=== PATIENT | female | born 1990 | race Caucasian/White ===

== ENCOUNTER 2017-07-29 20:15 | Emergency (ER) | payer OTHER ==
--- NOTE | 2017-07-29 20:22 | PDOC ---
History of Present Illness - General History Source: Patient Exam Limitations: No Limitations - History of Present Illness Initial Comments: 07/29/17 20:51 The patient is a 26 year old female with past medical history of Left clavicle fracture (>10 years ago, 3x) presents to the emergency department with right knee pain. The patient states she was running on an uneven dirt road yesterday when she stumbled and felt an unusual painful sensation to the right knee. She denies falling, doesnt recall hearing a pop or twisting it, she rested for a little and continued running with persistent pain. The patient reports since then the pains been gradually getting worse, no relief w/ stretching or w/ aleve (3 tabs total). The patient reports loss of sleep due to the pain. Denies knee locking or crackles on movement of the knee. Denies any past injury or problem w/ either knee. Denies any joint stiffness. Denies back pain or neck pain. Denies numbness, tingling or loss of sensation. Denies fever, chills, nausea, vomiting. Allergies: NKDA Social history: patient reports history of smoking and occasional alcohol use. Denies the use of recreational drugs. PCP: Dr. Lobito Love. <Kerline Diaz - Last Filed: 07/29/17 21:15> <Sisi Duckworth - Last Filed: 07/30/17 01:05> - General Chief Complaint: Pain, Acute Stated Complaint: RT KNEE PAIN Time Seen by Provider: 07/29/17 20:20 Past History <Kerline Diaz - Last Filed: 07/29/17 21:15> - Immunization History Immunization Up to Date: Yes - Suicide/Smoking/Psychosocial Hx Smoking History: Never smoked Have you smoked in the past 12 months: Yes Number of Cigarettes Smoked Daily: 2 'Breaking Loose' booklet given: 06/02/15 Hx Alcohol Use: Yes (OCCAS) Drug/Substance Use Hx: No Substance Use Type: None <Sisi Duckworth - Last Filed: 07/30/17 01:05> - Past Medical History Allergies/Adverse Reactions: Allergies Allergy/AdvReac Type Severity Reaction Status Date / Time No Known Allergies Allergy Verified 07/29/17 20:18 Home Medications: Ambulatory Orders Diclofenac Sodium [Voltaren -] 75 mg PO BID PRN #14 tablet. 07/29/17 Naproxen Sodium [Aleve] 220 mg PO ASDIR 07/29/17 Review of Systems - Review of Systems Able to Perform ROS?: Yes Comments:: 07/29/17 20:51 GENERAL/CONSTITUTIONAL: No fever or chills. No weakness. HEAD, EYES, EARS, NOSE AND THROAT: No change in vision. No ear pain or discharge. No sore throat. CARDIOVASCULAR: No chest pain or shortness of breath. RESPIRATORY: No cough, wheezing, or hemoptysis. GASTROINTESTINAL: No nausea, vomiting, diarrhea or constipation. GENITOURINARY: No dysuria, frequency, or change in urination. MUSCULOSKELETAL: (+) right knee pain.No muscle swelling or pain. No neck or back pain. SKIN: No rash NEUROLOGIC: No headache, vertigo, loss of consciousness, or change in strength/ sensation. ENDOCRINE: No increased thirst. No abnormal weight change. HEMATOLOGIC/LYMPHATIC: No anemia, easy bleeding, or history of blood clots. ALLERGIC/IMMUNOLOGIC: No hives or skin allergy. <Kerline Diaz - Last Filed: 07/29/17 21:15> *Physical Exam - Vital Signs Last Vital Signs Temp Pulse Resp BP Pulse Ox 97.3 F L 57 L 18 119/67 98 07/29/17 20:15 07/29/17 20:15 07/29/17 20:15 07/29/17 20:15 07/29/17 20:15 - Physical Exam Comments: 07/29/17 21:11 GENERAL: Awake, alert, and fully oriented, in no acute distress HEAD: No signs of trauma EYES: PERRLA, EOMI, sclera anicteric, conjunctiva clear ENT: Auricles normal inspection, nares patent. Moist mucosa NECK: Normal ROM, supple, no JVD, or masses LUNGS: Breath sounds equal, clear to auscultation bilaterally. No wheezes, and no crackles HEART: Regular rate and rhythm, normal S1 and S2, no murmurs, rubs or gallops ABDOMEN: Soft, nontender, normoactive bowel sounds. No guarding, no rebound. No masses EXTREMITIES: (+) Right knee: Generalized edema w/o ecchymosis or deformities. Mild pain w/ varus and valgus stressing. No point tenderness. No ligament instability. Mild posterior tenderness w/o masses palpated. No patellar step offs or significant tenderness. Remainder of the extremities: Normal range of motion No clubbing or cyanosis. No cords or erythema. NEUROLOGICAL: Alert and oriented x 3. Moves all extremities. Face is symmetric. SKIN: Warm, Dry, normal turgor, no rashes or lesions noted. <Kerline Diaz - Last Filed: 07/29/17 21:15> Progress Note - Progress Note Progress Note: Documentation has been prepared under my direction and personally reviewed by me in its entirety. I attest that this documented accurately reflects all work, treatment, procedures and medical decision making performed by me. <Sisi Duckworth - Last Filed: 07/30/17 01:05> Medical Decision Making - Medical Decision Making As noted above, this 26-year-old woman with no previous history of knee injury/ pain presents with acute pain in the right knee after she stumbled while running on uneven surface earlier yesterday. The patient did not actually fall but twisted the knee as she stumbled and subsequently had severe pain with weightbearing.No other extremity/torso/head or neck injury sustained. Although the patient has taken a limited amount of Aleve (3 tablets total over the last 24 hours), she has not had any pain relief. Exam as noted. 3 position x-ray of the right knee performed: No evidence of dislocation or fracture. Results discussed with the patient. Clinical presentation most consistent with soft tissue injury such as a sprain. Toradol 60 mg IM given for anti-inflammatory/analgesic effects. Knee immobilizer placed on the right lower extremity; she should keep the immobilizer in place when she is up and around until seen by an orthopedist. Meanwhile, she should continue ice/elevation of the right knee as much as possible over the next 2-3 days. Patient does not have an orthopedist and referral information for [facility] given to the patient. Diclofenac 75 mg twice a day as needed for pain prescribed(#14 dispensed) <Sisi Duckworth - Last Filed: 07/30/17 01:05> *DC/Admit/Observation/Transfer - Attestations Scribe Attestion: 07/29/17 20:52 Documentation prepared by Kerline Diaz, acting as medical assistant dermatology for Sisi Duckworth MD. <Kerline Diaz - Last Filed: 07/29/17 21:15> <Sisi Duckworth - Last Filed: 07/30/17 01:05> Diagnosis at time of Disposition: Sprain of right knee Qualifiers: Encounter type: initial encounter Involved ligament of knee: medial collateral ligament Qualified Code(s): S83.411A - Sprain of medial collateral ligament of right knee, initial encounter - Discharge Dispostion Disposition: HOME Condition at time of disposition: Stable - Prescriptions Prescriptions: Diclofenac Sodium [Voltaren -] 75 mg PO BID PRN #14 tablet.dr GAMEZ Reason: Pain - Referrals Referrals: Ramiro Armstrong MD [Staff Physician] - - Patient Instructions Printed Discharge Instructions: Knee Sprain Additional Instructions: Ice/elevation to right knee is much as possible over the next 2 days Diclofenac 75 mg twice a day as needed for pain (take with food) Knee immobilizer when up and around until seen by orthopedist Crutches for ambulation as needed until seen by orthopedist Call Dr. [facility] on Monday morning (07/31) for follow-up within the next 1-2 days
[2017-07-29 20:40] VITALS: BP 119/67; PULSE 57; TEMP 97.3; BMI 27.3
[2017-07-29] MEDS ORDERED: KETOROLAC TROMETHAMINE 60 MG/2 ML VIAL IM ONE (22:29)
[2017-07-29] MEDS ORDERED: KETOROLAC TROMETHAMINE 60 MG/2 ML VIAL ONE (22:30)
== END 2017-07-29 22:44 | disposition home or self-care (01) ==
LOC: FER 20:15
PROC: 2W3QX1Z Immobilization of Right Lower Leg using Splint (ICD-10-PCS; principal; 2017-07-29)
PROC: 3E0233Z Introduction of Anti-inflammatory into Muscle, Percutaneous Approach (ICD-10-PCS; 2017-07-29)
DX: S83.411A Sprain of medial collateral ligament of right knee, initial encounter (principal); X58.XXXA Exposure to other specified factors, initial encounter; Y93.89 Activity, other specified; Y92.9 Unspecified place or not applicable
CPT/HCPCS: 73562-TC-RT-FY; 84703; 99283-25